=== PATIENT | male | born 2000 | race Two or more races ===

== ENCOUNTER 2024-06-27 05:33 | Emergency (ER) | payer MEDICAID, SELFPAY ==
[2024-06-27 05:38] VITALS: BP 135/82; PULSE 66; TEMP 36.7; O2SAT 99; BMI 25.8
--- NOTE | 2024-06-27 05:44 | ED_ITS ---
HPI HPI - Extremity Injury (Lower) General Chief Complaint: Extremity Injury, Lower Stated Complaint: LOWER EXTREMITY PAIN Time Seen by Provider: 06/27/24 05:42 Source: patient Mode of arrival: Wheelchair Limitations: no limitations History of Present Illness HPI Narrative: 24-year-old male presents to the emergency department for right ankle pain. He twisted it when he stepped wrong in his house about 12 hours ago. He points to the lateral malleolar area. No other injury was sustained. He is never broken that ankle but he sprained it months. It is worse when he walks on it. Related Data Home Medications ?Medication ?Instructions ?Recorded ?Confirmed No Known Home Medications 06/27/24 06/27/24 Allergies Allergy/AdvReac Type Severity Reaction Status Date / Time No Known Drug Allergies Allergy Verified 06/27/24 05:44 Opioid HPI Opioid Management Most Recent Pain and Opioid Data: Last Pain Scale 8 06/27/24 05:51 06/27/24 Last ED Pain Assessment 06/27/24 05:51 Review of Systems ROS Narrative A ten point review of systems is negative except as noted above. PFSH PFSH Social History Little interest or pleasure in doing things: not at all Feeling down, depressed, or hopeless: not at all Exam Narrative Exam Narrative: Nurses note and vital signs reviewed and patient is not hypoxic. General: The patient appears well and in no apparent distress. Patient is resting comfortably on cart. Skin: Warm, dry, no pallor noted. There is no rash noted. Head: Normocephalic, atraumatic Eye: Normal conjunctiva, no drainage Ears, Nose, Mouth, and Throat: oral mucosa is moist. Nares patent. Cardiovascular: Regular Rate and Rhythm Respiratory: Patient is in no distress, no accessory muscle use Back: non-tender GI: Nontender Musculoskeletal: He has no tenderness in the right foot. He has some tenderness over the lateral malleolar area. Skin intact. No deformity or swelling noted. Neurological: A&O, normal speech Psychiatric: Cooperative Constitutional Vital Signs, click to edit/add: Last Vital Signs Temp 98.0 F 06/27/24 05:38 Pulse 66 06/27/24 05:38 Resp 16 06/27/24 05:38 BP 135/82 06/27/24 05:38 Pulse Ox 99 06/27/24 05:38 O2 Del Method Room Air 06/27/24 05:38 Course Vital Signs Vital signs: Vital Signs Temperature 98.0 F 06/27/24 05:38 Pulse Rate 66 06/27/24 05:38 Respiratory Rate 16 06/27/24 05:38 Blood Pressure 135/82 06/27/24 05:38 Pulse Oximetry 99 06/27/24 05:38 Oxygen Delivery Method Room Air 06/27/24 05:38 Temperature 98.0 F 06/27/24 05:38 Pulse Rate 66 06/27/24 05:38 Respiratory Rate 16 06/27/24 05:38 Blood Pressure 135/82 06/27/24 05:38 Pulse Oximetry 99 06/27/24 05:38 Oxygen Delivery Method Room Air 06/27/24 05:38 MDM - Extremity Injury (Lower) MDM Narrative Medical decision making narrative: X-ray of the ankle on my interpretation shows no fractures. Nelson wrap and air splint applied, application checked by me and found to be appropriate, he is neurovascularly intact. He was offered crutches but does not feel that he needs them. He was recommended ice rest and Motrin. Treatment diagnosis and follow- up were discussed with the patient. Differential Diagnosis Differential diagnosis: Likely ankle sprain and strain and ankle fracture Imaging Data Right ankle x-ray: My impression: No fracture Discharge Plan Discharge Chief Complaint: Extremity Injury, Lower Clinical Impression: Right ankle sprain Patient Disposition: Home, Self-Care Time of Disposition Decision: 05:56 Condition: Good Mode of Transportation: Private Vehicle Prescriptions / Home Meds: No Action No Known Home Medications Print Language: Czech Instructions: Ankle Sprain (ED) Referrals: GRACE SANTIAGO [Primary Care Provider] - 1 week
== END 2024-06-27 06:12 | disposition home or self-care (01) ==
PROVIDERS: Emergency Provider Emergency Medicine; PCP Family Medicine
DX: S93.401A Sprain of unspecified ligament of right ankle, initial encounter (principal); X50.1XXA Overexertion from prolonged static or awkward postures, initial encounter
CPT/HCPCS: 73610; 99283